=== PATIENT | male | born 1960 | race Caucasian/White ===

== ENCOUNTER 2018-02-28 09:59 | Observation (INO) | payer OTHER ==
[~2018-02-28] VITALS: Ht 185.4 cm; Wt 103.0 kg
[2018-02-28] VITALS (13 sets, daily range): BP systolic 135–181; BP diastolic 75–99
--- NOTE | ~2018-02-28 | H ---
[address] [address] HISTORY AND PHYSICAL Name: TITA MONTILLA Room: [address] Ludwin Felipe#: [id number] Admission: 02/28/18 Attend Phys: Joseph Kohler MD, Discharge: 03/01/18 Date of : 56 Report #: [id number] THIS REPORT FOR: //name// Please refer to the History and Physical performed in the physician's office. By: [facility]5Medical Records Staff SONG /ANTIONE
[~2018-02-28 09:59] MED LIST: BACTRIM DS TAB1 EACH PO; CLEOCIN HCL150 MG PO; COZAAR100 MG PO; FLEXERIL PO; HYDROCODON-ACE1 EAC7 PO; LEVAQUIN 750 M750 MG PO; NAPROSYN500 MG PO; NORCO 5-325 TA1 EAC1 PO; NORCO 5-325 TA1 EACH PO; TORADOL 10 MG T10 MG PO
[2018-02-28 12:09] LABS: HEMOGLOBIN 15.2 gm/dL (14.0-18.0); MCH 31.1 pg (26.0-34.0); MCHC 34.4 g/dL (28.0-37.0); MCV 90.2 fL (80.0-100.0); MPV 9.3 fl. (7.2-11.1); RBC 4.88 mil/uL (4.50-6.00); RDW-CV 13.5 % (10.5-14.5); WBC 7.8 thou/uL (4.0-11.0)
[2018-02-28 12:19] LABS: INR 1.1; PROTIME 10.3 Seconds (9.20-11.50)
[2018-02-28 12:23] LABS: ALBUMIN 3.8 g/dL (3.4-5.0); ALKALINE PHOSPHATASE 90 U/L (46-116); ANION GAP 10 mmol/L (7-16); BUN 15 mg/dL (7-18); CHLORIDE 101 mmol/L (98-107); CHOLESTEROL 172 mg/dL (<200); CO2 29 mmol/L (21-32); CREATININE 1.1 mg/dL (0.6-1.3); GLUCOSE 113 mg/dL (70-99); HDL CHOLESTEROL 32 mg/dL (>40); LDL CHOLESTEROL 88 mg/dL (<100); POTASSIUM 3.3 mmol/L (3.5-5.1); SERUM ASSESSMENT Clear; SGOT 14 U/L (15-37); SGPT 26 U/L (30-65); SODIUM 140 mmol/L (136-145); TC:HDL 5.4 Ratio (Not establshd); TOTAL BILIRUBIN 0.5 mg/dL (<0.1-1.0); TOTAL PROTEIN 7.2 g/dL (6.4-8.2); TRIGLYCERIDE 262 mg/dL (<150); VLDL 52 mg/dL (<40)
[2018-02-28] MEDS ORDERED: ATORVASTATIN CA40 MG PO (12:25)
[2018-02-28] MEDS ORDERED: WELLBUTRIN SR150 MG PO (12:26)
[2018-02-28] MEDS ORDERED: COREG25 MG PO (12:27)
[2018-02-28] MEDS ORDERED: PRINIVIL20 MG PO (12:28)
[2018-02-28] MEDS ORDERED: CHLORTHALIDONE25 MG PO (12:28)
[2018-02-28] MEDS ORDERED: ASPIR-LOW81 MG PO (12:29)
--- NOTE | 2018-02-28 15:55 | EKG ---
[place] [address] ELECTROCARDIOGRAM REPORT Name: TITA MONTILLA Room: [facility]#: [id number] Admission: 02/28/18 Attend Phys: Stephan Oleary MD Discharge: Date of : 56 Report #: [id number] THIS REPORT FOR: //name// [facility] Test Date: 2018-02-28 Test Time: 11:51:44 Pat Name: TITA MONTILLA Department: Room: Gender: Nail Expert: : 1960 Requested By: Stephan Oleary Order Number: [id number] Reading MD: Stephan Oleary Measurements Intervals [place] Rate: 62 P: 26 WI: 179 QRS: -29 QRSD: 106 T: 95 QT: 460 QTc: 468 Interpretive Statements Sinus rhythm Probable left atrial enlargement LVH with secondary repolarization abnormality Inferior infarct, old Anterior ST elevation, probably due to LVH Compared to ECG 09/18/2014 17:59:57 Left ventricular hypertrophy now present Early repolarization now present ST (T wave) deviation now present Myocardial infarct finding still present Electronically Signed On 02-28-2018 15:55:45 CDT by Stephan Oleary [email or web address] <ELECTRONICALLY SIGNED> By: Stephan Oleary MD, FACC 02/28/18 1555 1151 1151 Stephan Oleary MD, FAC /EPI
--- NOTE | 2018-02-28 18:08 | NUR ---
RECIEVED REPORT FROM MAINTENANCE INSTRUCTOR AND ASSUMED CARE OF PT @ 1710.PT IS A/O X4,VSS,TRACING SR ON MONITOR.LUNG SOUNDS ARE CLEAR DIMINSHED.LAST BM WAS TODAY.IV RIGHT WRIST PATENT WITH NS RUNNING @ 125ML/HR.PT IS CALM AND COOPERATIVE WITH NO C/O PAIN AT TIME OF ASSESSMENT.PT IS BEDREST UNTIL 2049 THIS EVENING.POST CATH VITAL SIGNS COMPLETED PER ORDERS.CATH SITE DRESSING INTACT,SOFT,AND DRY. HOURLY ROUNDING COMPLETED FOR PT SAFETY.CALL LIGHT WITHIN REACH.FALL PRECAUTIONS IN PLACE.WILL CONTINUE TO MONITOR FOR DURATION OF SHIFT.
[2018-03-01] VITALS (7 sets, daily range): BP systolic 161–214; BP diastolic 74–112
[2018-03-01 04:14] LABS: HEMATOCRIT 40.7 % (42.0-52.0); HEMOGLOBIN 14.3 gm/dL (14.0-18.0); MCH 31.2 pg (26.0-34.0); MCHC 35.1 g/dL (28.0-37.0); MCV 88.8 fL (80.0-100.0); MPV 9.6 fl. (7.2-11.1); RBC 4.59 mil/uL (4.50-6.00); RDW-CV 13.5 % (10.5-14.5); WBC 10.1 thou/uL (4.0-11.0)
[2018-03-01 04:29] LABS: ALBUMIN 3.3 g/dL (3.4-5.0); ALKALINE PHOSPHATASE 93 U/L (46-116); ANION GAP 10 mmol/L (7-16); CALCIUM 8.7 mg/dL (8.5-10.1); CHLORIDE 103 mmol/L (98-107); CO2 28 mmol/L (21-32); CREATININE 1.1 mg/dL (0.6-1.3); GLUCOSE 134 mg/dL (70-99); SGOT 14 U/L (15-37); SGPT 23 U/L (30-65); SODIUM 141 mmol/L (136-145); TOTAL BILIRUBIN 0.5 mg/dL (<0.1-1.0); TOTAL PROTEIN 6.4 g/dL (6.4-8.2)
[2018-03-01 04:35] LABS: TROPONIN-I LEVEL 0.68 ng/mL (<0.06)
[2018-03-01 04:48] LABS: BUN 19 mg/dL (7-18); CHOLESTEROL 168 mg/dL (<200); HDL CHOLESTEROL 26 mg/dL (>40); LDL CHOLESTEROL 78 mg/dL (<100); SERUM ASSESSMENT Clear; TC:HDL 6.5 Ratio (Not establshd); TRIGLYCERIDE 321 mg/dL (<150); VLDL 64 mg/dL (<40)
--- NOTE | 2018-03-01 05:22 | NUR ---
ASSUMED CARE AROUND 1930. PT A/OX4 AND PLEASANT. AT BEDSIDE LAST NIGHT AND SOME POST-CATH AND MEDICATION EDUCATION DONE. TELE MONITOR TRACING SR. VSS, BP ELEVATED DURING NIGHT. SPOUSE REPORTED PT'S BP USUALLY RUNS 190 AND ABOVE. ON ROOM AIR. PT DENIED ANY PAIN. TEGADERM PLACED ON RIGHT RADIAL ACCESS- SOFT, DRSG C/D/I. RIGHT GROIN SITE HAS BLOOD AND OUTLINED ON DRSG, BUT SOFT AND NO HEMATOMA NOTED. UP SBA. IVF INFUSING ORDERED. SEE CHARTING. CALL LIGHT IN REACH, WILL CONTINUE WITH PLAN OF CARE.
--- NOTE | 2018-03-01 08:00 | NUR ---
ASSUMED PT. CARE AND RECEIVED REPORT AT 0730. PT A/OX4, VSS EXCEPT BP ELEVATED TO 214/112, MONITOR ON TRACING SR. PT. DENIES CURRENT CP/SOB. ON RA @ 96%. FULL ASSESSMENT COMPLETED, REFER TO CHARTING. RIGHT WRIST AND RIGHT GROIN CATH SITES WITH INTACT DRESSINGS, 2+ PULSES, NO HEMATOMA NOTED. FULL ASSESSMENT COMPLETED, REFER TO CHARTING.
[2018-03-01] MEDS ORDERED: NORVASC5 MG PO (11:14)
[2018-03-01] MEDS ORDERED: BRILINTA90 MG PO (11:14)
[2018-03-01] MEDS ORDERED: K-DUR 20 MEQ T20 MEQ PO (11:15)
[2018-03-01] MEDS ORDERED: COLACE100 MG PO (11:16)
--- NOTE | 2018-03-01 13:15 | NUR ---
DC ORDERS RECEIVED ONCE K+ >3.5. REDRAW NOTED K+ @ 3.4. DR. KOVACS NOTIFIED OF THIS AND ELEVATED BP. NEW ORDERS RECEIVED TO GIVEN 1 DOSE K+ AND NORVASC AND DC HOME. PT. GIVEN DC INSTRUCTIONS, SCRIPTS, AND CARENOTES. ALL QUESTIONS ANSWERED. PT. LEFT WITH SPOUSE TO RETURN HOME IN PERSONAL VEHICLE.
--- NOTE | 2018-03-01 15:48 | CARD ---
[address] [address] CARDIAC CATH REPORT Name: TITA MONTILLA Room: [address] Ludwin Felipe#: [id number] Admission: 02/28/18 Attend Phys: Joseph Kohler MD, Discharge: Date of : 56 Report #: [id number] THIS REPORT FOR: //name// APPROVED REPORT Study performed: 02/28/2018 13:37:22 Patient Details Patient Status: Out-Patient Room #: The patient is a 57 year-old male Event Personnel Stephan Oleary Pharmacy Stock Clerk, Lenore Kent RN Monitor, Eliza Covarrubias RN, Shorty Driver (Jeannette) Alfreda Blankenship Mindy RTR Monitor, Joseph Kohler Real Estate Site Analyst Procedures Performed Left Heart Cath w/LT VGram, ABDIAS Place w/wo Plasty Single LAD, ABDIAS Place w/wo Plasty Single CIRC Indication Positive stress test Risk Factors Hypercholesterolemia, Hypertension Admission/Lab Medications/Medications given during procedure Aspirin, Platelet Aff. Inhib., Angiomax bolus and infusion Procedure Narrative The patient was brought electively to the Cardiac Catheterization Laboratory and was prepped and draped in a sterile manner. The right femoral was infiltrated with 1% Lidocaine subcutaneous anesthesia. A 6fr Ultimum Sheath sheath was inserted into the Right Femoral Artery. Coronary angiography was performed using coronary diagnostic catheters. The left coronary system was accessed and visualized with a Diagnostic JL4 6fr catheter. The left ventricle was accessed and visualized with a Diagnostic PC: Pig 6fr catheter. Pre-demployment femoral angiogram was performed . Closure device was deployed with a Fr Angioseal STS 6Fr. There was no hematoma. Intraoperative Conscious Sedation Sedation start time: 14:27 Case end Time: 16:31 Fentanyl 25 mcg Versed 2 [place] [address] CARDIAC CATH REPORT Name: TITA MONTILLA Room: [address] M.R.#: [id number] Admission: 02/28/18 Attend Phys: Joseph Kohler MD, Discharge: Date of : 56 Report #: [id number] Fluoro Time: 31.9 minutes Dose: DAP 105795 cGycm2 6583.22 mGy Contrast Type and Amount: Visipaque 300 ml Coronary Angiography The patient's coronary anatomy is left dominant. Diagnostic Cath Left Main 40% distal left vein coronary stenosis LAD 80% distal LAD stenosis Circumflex 75% tubular mid vessel stenosis Right Coronary Small nondominant vessel appears normal and is filled on ascending aortography Left Ventriculography Left Ventriculography was not performed. Hemodynamics The aortic pressure is 107/54 mmHg with a mean of 77 mmHg. The left ventricular pressure is 154/4 mmHg with a mean of mmHg. The left ventricular end diastolic pressure is 13 mmHg. There was no gradient across the aortic valve upon pullback. PCI Technique Lesion Anticoagulation was achieved with Angiomax. Patient was preloaded with Angiomax IV 15 ml. Percutaneous coronary intervention was performed on the distal left anterior descending artery segment. The lesion stenosis prior to intervention was 80% with DELFINA 3 flow. A 6F XB 4.0 Guide Catheter was used to engage the ostium. A IG: BMW 190cm Interventional Guidewire was used to cross the lesion. BALLOON DILATION A Balloon catheter Euphora SC 2.25x12 was inserted and inflated up to 12.00atm for 10seconds. STENT DEPLOYMENT A drug-eluting stent Xience Alpine RX 2.5X15 was inserted and inflated up to 10.00atm for 10seconds. Additional Inflation: 12.00atm for 9seconds. POST STENT DEPLOYMENT BALLOON DILATION A Balloon catheter NC Trek RX 2.5 X 8 was inserted and inflated up to 12.00atm for 16seconds. Additional Inflation: 18.00atm [place] 10[place]. [place] [address] CARDIAC CATH REPORT Name: TITA MONTILLA Room: [address] M.R.#: [id number] Admission: 02/28/18 Attend Phys: Joseph Kohler MD, Discharge: Date of : 56 Report #: [id number] Final angiography reveals 0 % stenosis with DELFINA 3 flow. PCI Technique Lesion 2 Percutaneous Coronary Intervention was performed on the mid circumflex artery segment. Patient was preloaded with Angiomax IV 15 ml. Percutaneous coronary intervention was performed on the mid circumflex artery segment. The lesion stenosis prior to intervention was 75% with DELFINA 3 flow. A 6F XB 4.0 Guide Catheter was used to engage the ostium. A IG: BMW 190cm Interventional Guidewire was used to cross the lesion. Stent Deployment A drug-eluting stent Xience Alpine RX 3.25X23 was inserted and inflated up to 12.00atm for 11seconds. Additional Inflation: 14.00atm for 16seconds. Final angiography reveals 0 % stenosis with DELFINA 3 flow. Conclusion 1 significant multivessel coronary artery disease characterized by the following: A 40% distal left main coronary stenosis B 80% distal LAD stenosis C 75% narrowing of the midportion of the dominant circumflex D small nondominant right coronary artery which appears normal #2 normal left-sided hemodynamic study #3 successful percutaneous coronary intervention with deployment of drug-eluting stents at the sites of 80% distal LAD and 75% mid circumflex stenosis with 0% residual narrowing at both sites following stent deployment and DELFINA-3 flow the distal circulation Recommendations Cardiac Risk Reduction Program Aggressive Medical [place] [address] CARDIAC CATH REPORT Name: TITA MONTILLA Room: [address] Ludwin Felipe#: [id number] Admission: 02/28/18 Attend Phys: Joseph Kohler MD, Discharge: Date of : 56 Report #: [id number] Aspirin (any) Ticagrelor <ELECTRONICALLY SIGNED> By: Joseph Kohler MD, FAC 03/01/18 1547 46 1547Jodang Kohler MD, FAC /INF
--- NOTE | 2018-03-02 13:05 | EKG ---
[place] [address] ELECTROCARDIOGRAM REPORT Name: TITA MONTILLA Room: [address] M.R.#: [id number] Admission: 02/28/18 Attend Phys: Joseph Kohler MD, Discharge: 03/01/18 Date of : 56 Report #: [id number] THIS REPORT FOR: //name// [facility] Test Date: 2018-02-28 Test Time: 20:55:18 Pat Name: TITA MONTILLA Department: Room: [address] Gender: M Blood Coordinator: [place] : 1960 Requested By: Joseph Kohler Order Number: [id number] Reading MD: Stephan Oleary Measurements Intervals [place] Rate: 68 P: 42 MT: 175 QRS: -18 QRSD: 112 T: 89 QT: 443 QTc: 472 Interpretive Statements Sinus rhythm Probable left atrial enlargement LVH with IVCD and secondary repol abnrm Inferior infarct, old Compared to ECG 02/28/2018 11:51:44 Intraventricular conduction delay now present ST (T wave) deviation no longer present Myocardial infarct finding still present Electronically Signed On 03-02-2018 13:04:59 CDT by Stephan Oleary [email or web address] <ELECTRONICALLY SIGNED> By: Stephan Oleary MD, FAC 03/02/18 1304 54 54 Stephan Oleary MD, [facility] /EPI
--- NOTE | 2018-03-02 13:05 | EKG ---
[place] [address] ELECTROCARDIOGRAM REPORT Name: TITA MONTILLA Room: [address] M.R.#: [id number] Admission: 02/28/18 Attend Phys: Joseph Kohler MD, Discharge: 03/01/18 Date of : 56 Report #: [id number] THIS REPORT FOR: //name// [facility] Test Date: 2018-03-01 Test Time: 03:46:13 Pat Name: TITA MONTILLA Department: Room: [address] Gender: M Support Dba: SHERRIE : 1960 Requested By: Joseph Kohler Order Number: [id number] Reading MD: Stephan Oleary Measurements Intervals [place] Rate: 77 P: 41 VA: 172 QRS: -28 QRSD: 108 T: 83 QT: 426 QTc: 483 Interpretive Statements Sinus rhythm Probable left atrial enlargement LVH with secondary repolarization abnormality Inferior infarct, old Compared to ECG 02/28/2018 11:51:44 ST (T wave) deviation no longer present Myocardial infarct finding still present Electronically Signed On 03-02-2018 13:05:19 CDT by Stephan Oleary [email or web address] <ELECTRONICALLY SIGNED> By: Stephan Oleary MD, FACC 03/02/18 1305 0346 0346 Stephan Oleary MD, FACC /EPI
--- NOTE | 2018-03-14 08:10 | D ---
[address] [address] DISCHARGE SUMMARY Name: TITA MONTILLA Room: [address] Ludwin Felipe#: [id number] Admission: 02/28/18 Attend Phys: Joseph Kohler MD, Discharge: 03/01/18 Date of : 56 Report #: [id number] THIS REPORT FOR: //name// CC: Joseph NascimentoHighlands Behavioral Health Systemskylar Oleary DATE OF SERVICE: 03/01/2018 FINAL DIAGNOSES: 1. Coronary artery disease, status post percutaneous coronary intervention to mid left anterior descending coronary artery and mid circumflex coronary artery with drug-eluting stents. 2. Preserved left ventricular systolic function. 3. Hypertension, malignant. 4. Hyperlipidemia. 5. Unstable angina. HISTORY OF PRESENT ILLNESS: The patient is a 57-year-old man that had been having increasing chest discomfort with physical activity and an abnormal stress test. He underwent a successful cardiac catheterization via his right femoral artery. We attempted a right radial approach, but he had a tortuous subclavian. He was switched to a femoral approach and had good results. He was found to have a 75-80% mid LAD stenosis and an 80% mid circumflex stenosis and a 50% obtuse marginal branch, which was left alone. He has a posterior takeoff of a small nondominant right coronary artery, which was subselectively engaged and was normal. Postprocedurally, he was doing well, but was noted to be hypertensive, some adjustments were made to his medications for blood pressure. Also, his LDL on presentation was 78, so his atorvastatin dose was doubled. He will be discharged on the following medications: Aspirin 81 mg daily, Brilinta 90 mg p.o. b.i.d., Coreg 25 mg p.o. b.i.d., amlodipine 5 mg once daily in the morning, atorvastatin 40 mg daily, chlorthalidone 40 mg daily and lisinopril 40 mg daily and he will also continue with bupropion and docusate. FOLLOWUP: Will be in 1 week with our nurse practitioner. PROCEDURE PERFORMED: Cardiac catheterization, 2-vessel angioplasty. <ELECTRONICALLY SIGNED> By: Beto Yang MD, FACC 03/14/18 0810 0943 0236Stephan Oleary MD, FACC /nt
== END 2018-03-01 13:15 | disposition home or self-care (01) ==
LOC: M.CL 09:59 → M.2W 16:54 → M.TBA-ER 16:54 → M.2W 17:22
PROVIDERS: Internal Medicine Cardiovascular Disease; ADMIT Internal Medicine
DX: I25.110 Atherosclerotic heart disease of native coronary artery with unstable angina pectoris (principal); E78.5 Hyperlipidemia, unspecified; I10 Essential (primary) hypertension

== ENCOUNTER → 2018-03-14 | Outpatient (CLI) | payer OTHER ==
[~2018-03-14] MED LIST changes: +ASPIR-LOW81 MG PO; +ATORVASTATIN CA40 MG PO; +BRILINTA90 MG PO; +CHLORTHALIDONE25 MG PO; +COLACE100 MG PO; +COREG25 MG PO; +K-DUR 20 MEQ T20 MEQ PO; +NORVASC5 MG PO; +PRINIVIL20 MG PO; +WELLBUTRIN SR150 MG PO
[2018-03-14 09:57] LABS: CALCIUM 9.3 mg/dL (8.5-10.1); CREATININE 1.1 mg/dL (0.6-1.3); POTASSIUM 3.4 mmol/L (3.5-5.1)
== END ==
LOC: M.LAB 08:59
PROVIDERS: Internal Medicine Cardiovascular Disease
DX: E87.6 Hypokalemia (principal)